=== PATIENT | female | born 2000 | race Caucasian/White ===

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

== ENCOUNTER 2021-05-25 20:34 | Emergency (ER) | payer OTHER ==
[~2021-05-25] VITALS: Ht 154.9 cm; Wt 81.6 kg
[~2021-05-25 20:34] MED LIST changes: +GILPHEX TR TAB1 EACH PO
[2021-05-26] MEDS ORDERED: PYRIDIUM200 MG PO (00:35)
[2021-05-26] MEDS ORDERED: BACTRIM DS TAB1 EACH PO (00:35)
== END 2021-05-26 | disposition home or self-care (01) ==
LOC: EMR PED 20:34
DX: N30.00 Acute cystitis without hematuria (principal)

== ENCOUNTER 2021-07-06 17:54 | Emergency (ER) | payer OTHER ==
[~2021-07-06] VITALS: Ht 154.9 cm; Wt 77.1 kg
[~2021-07-06 17:54] MED LIST changes: +BACTRIM DS TAB1 EACH PO; +PYRIDIUM200 MG PO
[2021-07-06] MEDS ORDERED: DULCOLAX STOOL100 M1 PO (20:47)
[2021-07-06] MEDS ORDERED: MIRALAX510 GM PO (20:47)
== END 2021-07-06 21:01 | disposition home or self-care (01) ==
LOC: ER 17:54 → EMR PED 17:56 → ER 17:56 → EMR PED 21:01
DX: K59.09 Other constipation (principal); K29.00 Acute gastritis without bleeding

== ENCOUNTER 2021-09-17 08:31 | Emergency (ER) | payer OTHER ==
[~2021-09-17] VITALS: Ht 154.9 cm; Wt 74.8 kg
[~2021-09-17 08:31] MED LIST changes: +DULCOLAX STOOL100 M1 PO; +MIRALAX510 GM PO
== END 2021-09-17 12:17 | disposition home or self-care (01) ==
LOC: EMR PED 08:31
DX: U07.1 COVID-19 (principal)

== ENCOUNTER 2022-02-04 17:04 | Emergency (ER) | payer OTHER ==
[~2022-02-04] VITALS: Ht 154.9 cm; Wt 74.8 kg
== END 2022-02-04 20:38 | disposition home or self-care (01) ==
LOC: ER 17:04 → EMR PED 17:09
DX: S00.93XA Contusion of unspecified part of head, initial encounter (principal); T07.XXXA Unspecified multiple injuries, initial encounter; W18.30XA Fall on same level, unspecified, initial encounter; Y93.89 Activity, other specified; Y92.59 Other trade areas as the place of occurrence of the external cause; Y99.9 Unspecified external cause status

== ENCOUNTER 2022-09-01 11:41 | Emergency (ER) | payer OTHER ==
[~2022-09-01] VITALS: Ht 154.9 cm; Wt 89.4 kg
== END 2022-09-01 16:05 | disposition home or self-care (01) ==
LOC: EMR PED 11:41
DX: M62.830 Muscle spasm of back (principal)

== ENCOUNTER 2022-11-15 14:21 | Emergency (ER) | payer OTHER ==
[~2022-11-15] VITALS: Ht 157.5 cm; Wt 88.0 kg
== END 2022-11-16 00:14 | disposition home or self-care (01) ==
LOC: EMR PED 14:21
DX: R10.2 Pelvic and perineal pain (principal)

== ENCOUNTER 2023-05-24 16:21 | Emergency (ER) | payer OTHER ==
[~2023-05-24] VITALS: Ht 154.9 cm; Wt 89.8 kg
== END 2023-05-24 22:13 | disposition home or self-care (01) ==
LOC: ER 16:21
PROVIDERS: General Practice
DX: B34.9 Viral infection, unspecified (principal); Z91.018 Allergy to other foods; Z20.822 Contact with and (suspected) exposure to COVID-19

== ENCOUNTER 2023-07-28 09:26 | Emergency (ER) | payer OTHER ==
[~2023-07-28] VITALS: Ht 154.9 cm; Wt 89.8 kg
[2023-07-28 11:00] LABS: HEMATOCRIT 42.7 % (36.0-45.00); HEMOGLOBIN 14.1 g/dL (12.0-15.00); MEAN CELL VOLUME 82.5 fL (80.00-100.00); MEAN CORPUSCULAR HEMOGLOBIN 27.3 pg (27.00-32.0); MEAN CORPUSCULAR HGB CONC 33.1 g/dl (32.0-36.0); PLATELET COUNT 319 K/uL (150-450); RED BLOOD COUNT 5.18 M/uL (4.00-6.00); RED CELL DISTRIBUTION WIDTH 14.4 % (11.5-14.5)
[2023-07-28 11:37] LABS: CALCIUM 9.4 mg/dL (8.5-10.1); CREATININE SERUM 0.62 mg/dL (0.55-1.02); GFR 121.51; POTASSIUM 4.04 mEq/L (3.5-5.1)
== END 2023-07-28 13:59 | disposition home or self-care (01) ==
LOC: ER 09:26
PROVIDERS: Emergency Medicine
DX: K52.89 Other specified noninfective gastroenteritis and colitis (principal)

== ENCOUNTER 2023-10-27 13:26 | Emergency (ER) | payer OTHER ==
[~2023-10-27] VITALS: Ht 152.4 cm; Wt 89.8 kg
== END 2023-10-27 15:57 | disposition home or self-care (01) ==
LOC: ER 13:26
DX: R51.9 Headache, unspecified (principal); Z91.013 Allergy to seafood

== ENCOUNTER 2024-05-27 08:46 | Emergency (ER) | payer OTHER ==
[~2024-05-27] VITALS: Ht 154.9 cm; Wt 68.0 kg
[2024-05-27] MEDS ORDERED: KETOROLAC TROMETHAMINE 60 MG VIAL IM ONE ×2 (09:30→09:31)
[2024-05-27] MEDS ORDERED: DEXAMETHASONE SODIUM PHOSPHATE 4 MG/ML VIAL IM ONE (09:30)
[2024-05-27] MEDS ORDERED: DEXAMETHASONE SODIUM PHOSPHATE 4 MG/ML VIAL ONE (09:31)
[2024-05-27 10:10] LABS: HEMATOCRIT 38.9 % (36.0-45.00); HEMOGLOBIN 13.3 g/dL (12.0-15.00); MEAN CORPUSCULAR HEMOGLOBIN 28.3 pg (27.00-32.0); MEAN CORPUSCULAR HGB CONC 34.1 g/dl (32.0-36.0); PLATELET COUNT 392 K/uL (150-450); RED BLOOD COUNT 4.69 M/uL (4.00-6.00); RED CELL DISTRIBUTION WIDTH 13.7 % (11.5-14.5)
[2024-05-27] MEDS ORDERED: ZITHROMAX500 MG PO (10:56)
[2024-05-27] MEDS ORDERED: TUSNEL LIQUID178 ML PO (10:56)
[2024-05-27 10:59] VITALS: BP 112/79; O2SAT 99
== END 2024-05-27 11:01 | disposition home or self-care (01) ==
LOC: ER 08:48
PROVIDERS: General Practice
DX: J06.9 Acute upper respiratory infection, unspecified (principal); Z88.8 Allergy status to other drugs, medicaments and biological substances; Z20.822 Contact with and (suspected) exposure to COVID-19

== ENCOUNTER 2024-06-24 09:49 | Emergency (ER) | payer OTHER ==
[~2024-06-24] VITALS: Ht 152.4 cm; Wt 90.7 kg
[~2024-06-24 09:49] MED LIST changes: +TUSNEL LIQUID178 ML PO; +ZITHROMAX500 MG PO
[2024-06-24] MEDS ORDERED: KETOROLAC TROMETHAMINE 60 MG VIAL IM ONE (10:45)
[2024-06-24] MEDS ORDERED: DEXAMETHASONE SODIUM PHOSPHATE 4 MG/ML VIAL IM ONE (10:45)
[2024-06-24] MEDS ORDERED: GUAIFENESIN/DEXTROMETHORPHAN 10ML BLIST.PACK PO ONE (10:45)
[2024-06-24 11:09] LABS: HEMATOCRIT 40.8 % (36.0-45.00); HEMOGLOBIN 13.5 g/dL (12.0-15.00); MEAN CELL VOLUME 84.1 fL (80.00-100.00); MEAN CORPUSCULAR HGB CONC 33.2 g/dl (32.0-36.0); PLATELET COUNT 342 K/uL (150-450); RED BLOOD COUNT 4.84 M/uL (4.00-6.00); RED CELL DISTRIBUTION WIDTH 14.7 % (11.5-14.5)
== END 2024-06-24 12:58 | disposition home or self-care (01) ==
LOC: ER 09:50
PROVIDERS: General Practice
DX: R53.81 Other malaise (principal); J06.9 Acute upper respiratory infection, unspecified; Z20.822 Contact with and (suspected) exposure to COVID-19; Z91.013 Allergy to seafood

== ENCOUNTER 2024-10-19 08:48 | Emergency (ER) | payer OTHER ==
[~2024-10-19] VITALS: Ht 154.9 cm; Wt 90.7 kg
[2024-10-19] MEDS ORDERED: LORATADINE/PSEUDOEPHEDRINE 1 TAB TAB.SR.24H PO ONE (09:15)
[2024-10-19] MEDS ORDERED: ONDANSETRON 4 MG TAB.RAPDIS PO ONE ×2 (09:15→09:21)
[2024-10-19] MEDS ORDERED: MONTELUKAST SODIUM 10 MG TABLET PO ONE (09:15)
[2024-10-19 10:42] LABS: HEMATOCRIT 39.6 % (36.0-45.00); HEMOGLOBIN 13.2 g/dL (12.0-15.00); MEAN CELL VOLUME 82.5 fL (80.00-100.00); MEAN CORPUSCULAR HEMOGLOBIN 27.5 pg (27.00-32.0); MEAN CORPUSCULAR HGB CONC 33.3 g/dl (32.0-36.0); PLATELET COUNT 383 K/uL (150-450); RED CELL DISTRIBUTION WIDTH 13.9 % (11.5-14.5)
[2024-10-19] MEDS ORDERED: PEPCID AC20 MG PO (11:44)
[2024-10-19] MEDS ORDERED: AMOX1TAB5 PO (11:44)
[2024-10-19] MEDS ORDERED: CLARITIN-D 241 EACH PO (11:44)
[2024-10-19] MEDS ORDERED: SINGULAIR10 MG PO (11:44)
== END 2024-10-19 12:03 | disposition home or self-care (01) ==
LOC: ER 08:50
PROVIDERS: General Practice
DX: J06.9 Acute upper respiratory infection, unspecified (principal); Z20.822 Contact with and (suspected) exposure to COVID-19; Z88.8 Allergy status to other drugs, medicaments and biological substances; Z91.013 Allergy to seafood

== ENCOUNTER 2024-11-24 11:51 | Emergency (ER) | payer OTHER ==
[~2024-11-24] VITALS: Ht 154.9 cm; Wt 104.8 kg
[~2024-11-24 11:51] MED LIST changes: +AMOX1TAB5 PO; +CLARITIN-D 241 EACH PO; +PEPCID AC20 MG PO; +SINGULAIR10 MG PO
[2024-11-24 13:42] VITALS: BP 113/77; O2SAT 97
[2024-11-24] MEDS ORDERED: KETOROLAC TROMETHAMINE 60 MG VIAL IM STA (13:58)
== END 2024-11-24 16:39 | disposition home or self-care (01) ==
LOC: ER 11:54
DX: M54.50 Low back pain, unspecified (principal); Z91.013 Allergy to seafood; Z88.8 Allergy status to other drugs, medicaments and biological substances
CPT/HCPCS: 72040; 72100; 96372; 99283; J1885

== ENCOUNTER 2025-05-30 09:21 | Emergency (ER) | payer OTHER ==
[~2025-05-30] VITALS: Ht 154.9 cm; Wt 96.2 kg
[2025-05-30] MEDS ORDERED: ORPHENADRINE CITRATE 30 MG/ML AMPUL IM ONE (11:45)
[2025-05-30] MEDS ORDERED: KETOROLAC TROMETHAMINE 60 MG VIAL IM ONE (11:45)
[2025-05-30 13:59] LABS: COVID-19 AG NEGATIVE (NEGATIVE)
== END 2025-05-30 14:47 ==
LOC: ER 09:21
PROVIDERS: General Practice
DX: G89.11 Acute pain due to trauma (principal); M54.50 Low back pain, unspecified; J45.909 Unspecified asthma, uncomplicated; Z20.822 Contact with and (suspected) exposure to COVID-19; Z88.8 Allergy status to other drugs, medicaments and biological substances

== ENCOUNTER 2025-07-04 17:34 | Emergency (ER) | payer OTHER ==
[~2025-07-04] VITALS: Ht 152.4 cm; Wt 86.2 kg
[2025-07-04 17:48] VITALS: BP 119/78; O2SAT 99
[2025-07-04] MEDS ORDERED: LIDOCAINE HCL 1% 10ML VIAL PERCUT ONE (18:45)
[2025-07-04] MEDS ORDERED: CEFTRIAXONE SODIUM 1,000 MG VIAL IM ONE (18:45)
[2025-07-04] MEDS ORDERED: TETANUS & DIPHTHERIA TOX,ADULT 0.5 ML VIAL IM ONE (18:45)
[2025-07-04] MEDS ORDERED: LIDOCAINE HCL 1% 10ML VIAL ONE (19:37)
[2025-07-04] MEDS ORDERED: CEFTRIAXONE SODIUM 1,000 MG VIAL ONE (19:37)
[2025-07-04] MEDS ORDERED: DIPHTH,PERTUSS(ACELL),TET VAC 0.5 ML SYRINGE IM ONE (19:38)
== END 2025-07-04 23:08 ==
LOC: ER 17:35
DX: S61.022A Laceration with foreign body of left thumb without damage to nail, initial encounter (principal); W45.8XXA Other foreign body or object entering through skin, initial encounter; Y93.89 Activity, other specified; Y92.89 Other specified places as the place of occurrence of the external cause; J45.909 Unspecified asthma, uncomplicated; Z88.8 Allergy status to other drugs, medicaments and biological substances
CPT/HCPCS: 12001; 90471; 90714; J1670

== ENCOUNTER 2025-07-11 13:43 | Emergency (ER) | payer OTHER ==
[~2025-07-11] VITALS: Ht 154.9 cm; Wt 90.7 kg
[2025-07-11 14:14] VITALS: BP 101/69; O2SAT 99
== END 2025-07-11 14:35 ==
LOC: ER 13:44
DX: Z48.02 Encounter for removal of sutures (principal)